=== PATIENT | male | born 1985 | race Caucasian/White ===

== ENCOUNTER → 2020-10-25 | Outpatient (CLI) | payer BC ==
[~2020-10-25] MED LIST: CENTRUM SILVER1 EAC2 PO; TRAMADOL 50 MG50 MG PO; WELLBUTRIN 75 M75 M1 PO; WELLBUTRIN SR150 MG PO
== END ==
LOC: LAB 14:02
PROVIDERS: ATTEND Anesthesiology
DX: Z01.812 Encounter for preprocedural laboratory examination (principal); Z20.822 Contact with and (suspected) exposure to COVID-19